=== PATIENT | female | born 1930 | race Native Hawaiian/Other Pacific Islander ===

== ENCOUNTER → 2016-10-21 | Outpatient (CLI) | payer MEDICARE ==
--- NOTE | 2016-10-22 08:22 | XR ---
EXAMINATION TYPE: XR cervical spine comp DATE OF EXAM: 10/21/2016 3:45 PM COMPARISON: NONE HISTORY: Pain TECHNIQUE: Four views are submitted. FINDINGS: The odontoid is intact. There are no compression deformities. The prevertebral soft tissue structur es are within normal limits. Hypertrophic changes are seen at levels C3-T1. There is retrolisthesis of C3 on C4, C4 and C5 and C5 and C6. Multilevel moderate to severe degenerative disc disease and fac et arthropathy. Foraminal encroachment suspected level C3-T1. The oblique view surgical clips are seen overlying the upper chest. IMPRESSION: 1. Multilevel moderate to severe degenerative disc disease with retrolisthesis and facet arthropathy. Correlate with MRI for canal stenosis as clinically warranted.
== END | disposition home or self-care (01) ==
LOC: RADXRYALE 15:21
PROVIDERS: ATTEND Family Medicine
DX: M43.12 Spondylolisthesis, cervical region (principal); M50.10 Cervical disc disorder with radiculopathy, unspecified cervical region; M46.82 Other specified inflammatory spondylopathies, cervical region
CPT/HCPCS: 72050

== ENCOUNTER → 2017-07-07 | Outpatient (CLI) | payer MEDICARE ==
--- NOTE | 2017-07-08 12:08 | XR ---
Left knee HISTORY: Pain, swelling, strain 3 views of the left knee No comparisons Suprapatellar increased density is compatible joint effusion. Alignment and joint spaces are maintain ed. No fracture or dislocation. Vascular calcifications are suspected. IMPRESSION: Joint effusion. Consider knee MRI as indicated.
== END | disposition home or self-care (01) ==
LOC: RADXRYALE 15:19
PROVIDERS: ATTEND Physician Assistant Medical
DX: M25.462 Effusion, left knee (principal)

== ENCOUNTER → 2018-05-06 | Outpatient (CLI) | payer MEDICARE ==
--- NOTE | 2018-05-06 09:42 | MR ---
EXAMINATION TYPE: MR knee LT wo con DATE OF EXAM: 05/06/2018 COMPARISON: Plain film 07/07/2017 HISTORY: Left knee pain TECHNIQUE: Multiplanar, multisequence imaging of the left knee is performed without IV contrast. FINDINGS: MEDIAL MENISCUS: Some linear increased signal extends to the articular surface the posterior horn of the medial meniscus sagittal image 20 which may represent tear. There is intrasubstance signal noted additionally. LATERAL MENISCUS: The posterior horn of the lateral meniscus is markedly attenuated towards the root, abnormal signal present is compatible with chronic degeneration and tear of the lateral meniscus CRUCIATE LIGAMENTS: The anterior and posterior cruciate ligaments are intact and unremarkable. COLLATERAL LIGAMENTS: The medial collateral ligament and lateral collateral ligament complex are inta ct and unremarkable. EXTENSOR MECHANISM: Visualized quadriceps and patellar tendons are intact. EFFUSION: Suprapatellar joint effusion is present. POPLITEAL CYST: There is a small semimembranosus gastrocnemius cyst present. 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 Fluid signal at the origins of the gastrocnemius medial and lateral bellies could represent partial tears or possibly ganglion cysts. 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 Findings suggest tear of the posterior horn the medial meniscus. Additional findings above.
== END | disposition home or self-care (01) ==
LOC: RADMRIMAIN 08:44
PROVIDERS: ATTEND Family Medicine
DX: M17.12 Unilateral primary osteoarthritis, left knee (principal)

== ENCOUNTER 2021-04-09 18:02 | Observation (INO) | payer MEDICARE ==
[2021-04-09 19:10] LABS: Basophils % (A) 0 %; Eosinophils # (A) 0.3 k/uL (0-0.7); Eosinophils % (A) 3 %; HCT 39.7 % (34.0-46.0); HGB 12.8 gm/dL (11.4-16.0); Lymphocytes # (A) 1.8 k/uL (1.0-4.8); Lymphocytes % (A) 19 %; MCH 28.7 pg (25.0-35.0); MCHC 32.1 g/dL (31.0-37.0); MCV 89.3 fL (80.0-100.0); Mean Platelet Volume 7.4; Monocytes # (A) 0.5 k/uL (0-1.0); Monocytes % (A) 6 %; Neutrophils # (A) 6.4 k/uL (1.3-7.7); Neutrophils % (A) 69 %; Platelet Count 199 k/uL (150-450); RBC 4.45 m/uL (3.80-5.40); RDW 13.7 % (11.5-15.5); WBC 9.2 k/uL (3.8-10.6)
[2021-04-09 19:20] LABS: ALT 13 U/L (4-34); AST 26 U/L (14-36); African American GFR (CKD) >90 (>60 ml/min/1.73 sqM); Albumin 4.1 g/dL (3.5-5.0); Alkaline Phosphatase 81 U/L (38-126); Anion Gap 9 mmol/L; Blood Urea Nitrogen 18 mg/dL (7-17); Calcium 9.4 mg/dL (8.4-10.2); Carbon Dioxide 24 mmol/L (22-30); Chloride 102 mmol/L (98-107); Glucose 115 mg/dL (74-99); Magnesium 1.7 mg/dL (1.6-2.3); Non-African American GFR(CKD) 79 (>60 ml/min/1.73 sqM); Potassium 4.7 mmol/L (3.5-5.1); Sodium 135 mmol/L (137-145); Total Bilirubin 0.6 mg/dL (0.2-1.3); Total Protein 7.1 g/dL (6.3-8.2)
--- NOTE | 2021-04-09 19:25 | XR ---
EXAMINATION TYPE: XR chest 2V DATE OF EXAM: 04/09/2021 COMPARISON: 09/22/2012 HISTORY: Chest pain. Weakness. TECHNIQUE: 2 views FINDINGS: Heart and mediastinum are normal. Lungs are clear. Diaphragm is normal. Bony thorax is inta ct. There are chest leads. There are clips at the right axilla. IMPRESSION: No active cardiopulmonary disease. Normal heart. No change.
[2021-04-09 19:43] LABS: INR 0.9 (<1.2); Partial Thromboplastin Time 24.9 sec (22.0-30.0)
--- NOTE | 2021-04-09 20:04 | ED ---
General Adult HPI - General Chief complaint: Chest Pain Stated complaint: abd ekg Time Seen by Provider: 04/09/21 18:22 Source: patient, RN notes reviewed, old records reviewed Mode of arrival: wheelchair Limitations: no limitations - History of Present Illness Initial comments: 89-year-old female presenting for evaluation of chest pain and abnormal EKG. Patient was sent in by primary care physician. She's had upper left-sided chest pain over the past several days. This is intermittent. She denies associated features of diaphoresis or vomiting. She has had a mild cough and mild dyspnea. She has no previous history of CAD. No history DVT or PE. - Related Data Home Medications Medication Instructions Recorded Confirmed Losartan Potassium 50 mg PO HS 04/09/21 04/09/21 Timolol 0.5% Ophth Soln [Timoptic 1 drop BOTH EYES DAILY 04/09/21 04/09/21 0.5% Ophth Soln] amLODIPine [Norvasc] 2.5 mg PO DAILY 04/09/21 04/09/21 metFORMIN HCL 250 mg PO DAILY 04/09/21 04/09/21 Allergies Allergy/AdvReac Type Severity Reaction Status Date / Time Penicillins Allergy Anaphylaxis Verified 04/09/21 21:01 Review of Systems ROS Statement: Those systems with pertinent positive or pertinent negative responses have been documented in the HPI. ROS Other: All systems not noted in ROS Statement are negative. Past Medical History Past Medical History: Diabetes Mellitus, Hyperlipidemia, Hypertension History of Any Multi-Drug Resistant Organisms: None Reported Past Surgical History: No Surgical Hx Reported Past Psychological History: No Psychological Hx Reported Smoking Status: Never smoker Past Alcohol Use History: None Reported Past Drug Use History: None Reported General Exam Limitations: no limitations General appearance: alert, in no apparent distress Head exam: Present: atraumatic, normocephalic Eye exam: Present: normal appearance, PERRL ENT exam: Present: normal exam Neck exam: Present: normal inspection. Absent: tenderness, meningismus Respiratory exam: Present: normal lung sounds bilaterally. Absent: respiratory distress, wheezes, rales, chest wall tenderness Cardiovascular Exam: Present: bradycardia, irregular rhythm GI/Abdominal exam: Present: soft. Absent: distended, tenderness, guarding, rebound Extremities exam: Present: normal inspection, normal capillary refill. Absent: pedal edema Neurological exam: Present: alert, oriented X3, CN II-XII intact. Absent: motor sensory deficit Psychiatric exam: Present: normal affect, normal mood Skin exam: Present: warm, dry, intact. Absent: cyanosis, diaphoretic Course Vital Signs 04/09/21 18:05 Temperature 98.3 F Pulse Rate 67 Respiratory 20 Rate Blood Pressure 168/77 O2 Sat by Pulse 97 Oximetry EKG Findings - EKG Comments: EKG Findings:: EKG: bradycardia with second-degree AV block type I, rate 57 UT interval is prolonged, QRS duration 82, QTC 408. No complex. Medical Decision Making - Medical Decision Making 89-year-old female presenting from the outpatient setting for evaluation of chest pain and abnormal EKG. Patient is in a bradycardic rhythm with second- degree heart block type I. Blood pressure is stable. Workup is initiated, CBC, CMP are unremarkable, negative initial troponin. She has an elevated d-dimer and CT angiography is ordered these results are pending. Patient will be monitored on telemetry. Cardiology will be placed on consult for evaluation both of her chest pain in her bradycardia. Case discussed with Dr. Stevenson who will admit. - Lab Data Result diagrams: 04/09/21 18:56 04/09/21 18:56 Lab Results 04/09/21 04/09/21 04/09/21 Range/Units 18:56 18:56 18:56 WBC 9.2 (3.8-10.6) k/uL RBC 4.45 (3.80-5.40) m/uL Hgb 12.8 (11.4-16.0) gm/dL Hct 39.7 (34.0-46.0) % MCV 89.3 (80.0-100.0) fL MCH 28.7 (25.0-35.0) pg MCHC 32.1 (31.0-37.0) g/dL RDW 13.7 (11.5-15.5) % Plt Count 199 (150-450) k/uL MPV 7.4 Neutrophils % 69 % Lymphocytes % 19 % Monocytes % 6 % Eosinophils % 3 % Basophils % 0 % Neutrophils # 6.4 (1.3-7.7) k/uL Lymphocytes # 1.8 (1.0-4.8) k/uL Monocytes # 0.5 (0-1.0) k/uL Eosinophils # 0.3 (0-0.7) k/uL Basophils # 0.0 (0-0.2) k/uL PT 10.0 (9.0-12.0) sec INR 0.9 (<1.2) APTT 24.9 (22.0-30.0) sec D-Dimer 1.61 H (<0.60) mg/L FEU Sodium 135 L (137-145) mmol/L Potassium 4.7 (3.5-5.1) mmol/L Chloride 102 (98-107) mmol/L Carbon Dioxide 24 (22-30) mmol/L Anion Gap 9 mmol/L BUN 18 H (7-17) mg/dL Creatinine 0.66 (0.52-1.04) mg/dL Est GFR (CKD-EPI)AfAm >90 (>60 ml/min/1.73 sqM) Est GFR (CKD-EPI)NonAf 79 (>60 ml/min/1.73 sqM) Glucose 115 H (74-99) mg/dL Calcium 9.4 (8.4-10.2) mg/dL Magnesium 1.7 (1.6-2.3) mg/dL Total Bilirubin 0.6 (0.2-1.3) mg/dL AST 26 (14-36) U/L ALT 13 (4-34) U/L Alkaline Phosphatase 81 (38-126) U/L Troponin I (0.000-0.034) ng/mL Total Protein 7.1 (6.3-8.2) g/dL Albumin 4.1 (3.5-5.0) g/dL 04/09/21 Range/Units 18:56 WBC (3.8-10.6) k/uL RBC (3.80-5.40) m/uL Hgb (11.4-16.0) gm/dL Hct (34.0-46.0) % MCV (80.0-100.0) fL MCH (25.0-35.0) pg MCHC (31.0-37.0) g/dL RDW (11.5-15.5) % Plt Count (150-450) k/uL MPV Neutrophils % % Lymphocytes % % Monocytes % % Eosinophils % % Basophils % % Neutrophils # (1.3-7.7) k/uL Lymphocytes # (1.0-4.8) k/uL Monocytes # (0-1.0) k/uL Eosinophils # (0-0.7) k/uL Basophils # (0-0.2) k/uL PT (9.0-12.0) sec INR (<1.2) APTT (22.0-30.0) sec D-Dimer (<0.60) mg/L FEU Sodium (137-145) mmol/L Potassium (3.5-5.1) mmol/L Chloride (98-107) mmol/L Carbon Dioxide (22-30) mmol/L Anion Gap mmol/L BUN (7-17) mg/dL Creatinine (0.52-1.04) mg/dL Est GFR (CKD-EPI)AfAm (>60 ml/min/1.73 sqM) Est GFR (CKD-EPI)NonAf (>60 ml/min/1.73 sqM) Glucose (74-99) mg/dL Calcium (8.4-10.2) mg/dL Magnesium (1.6-2.3) mg/dL Total Bilirubin (0.2-1.3) mg/dL AST (14-36) U/L ALT (4-34) U/L Alkaline Phosphatase (38-126) U/L Troponin I <0.012 (0.000-0.034) ng/mL Total Protein (6.3-8.2) g/dL Albumin (3.5-5.0) g/dL Disposition Clinical Impression: Chest pain, Second degree AV block, Mobitz type I Disposition: ADMITTED IP TO THIS [facility] Condition: Stable Is patient prescribed a controlled substance at d/c from ED?: No Referrals: Tevin Dixon DO [Primary Care Provider] - 1-2 days Decision to Admit Reason: Admit from EC Decision Date: 04/09/21 Decision Time: 20:57
[2021-04-09] MEDS ORDERED: ASPIRIN 325 MG TAB PO STA (20:50)
[2021-04-09] MEDS ORDERED: ACETAMINOPHEN TAB 325 MG TAB PO PRN (20:50)
[2021-04-09] MEDS ORDERED: NALOXONE 0.4 MG/ML 1 ML VIAL IV PRN (20:50)
--- NOTE | 2021-04-09 20:59 | CT ---
EXAMINATION TYPE: CT angio chest DATE OF EXAM: 04/09/2021 COMPARISON: None HISTORY: Left sided chest and arm pain. Elevated d-dimer. CT DLP: 224 mGycm Automated exposure control for dose reduction was used. CONTRAST: Performed with IV Contrast, patient injected with 100 mL of Isovue 370. There are 3-D post processed images. There is no mediastinal adenopathy. There are no hilar masses. Heart size is fairly normal. There is mild subsegmental atelectasis at the lung bases. There is no pleural effusion. There is no pericardia l effusion. There is normal contrast opacification of the pulmonary arteries. There are no filling defects. There is mild atheromatous change in the thoracic aorta. There is no sign of aneurysm or dissection. There is some degenerative spurring in the thoracic spine. There is no compression fracture. Sternum is intact. There is a large calcified gallstone. IMPRESSION: No evidence of pulmonary embolism. Mild fibrotic changes and subsegmental atelectasis at the lung bas es.
[2021-04-09] MEDS: FAMOTIDINE 20 MG/2 ML VIAL IV SCH (23:10)
[2021-04-09] MEDS: HEPARIN SODIUM,PORCINE/PF 5,000 UNIT/0.5 ML SYRINGE SQ SCH (23:10)
[2021-04-10 06:30] LABS: African American GFR (CKD) >90 (>60 ml/min/1.73 sqM); Anion Gap 8 mmol/L; Blood Urea Nitrogen 15 mg/dL (7-17); Calcium 9.3 mg/dL (8.4-10.2); Carbon Dioxide 25 mmol/L (22-30); Chloride 102 mmol/L (98-107); Glucose 116 mg/dL (74-99); Magnesium 1.7 mg/dL (1.6-2.3); Non-African American GFR(CKD) 78 (>60 ml/min/1.73 sqM); Potassium 3.8 mmol/L (3.5-5.1); Sodium 135 mmol/L (137-145)
--- NOTE | 2021-04-10 10:35 | P.HPIM ---
History of Present Illness 89-year-old pleasant female came in with complaints of from musculoskeletal left-sided sharp chest pain radiating to the back moderate severity. Patient is incidentally found to have second-degree heart block questionable whether it's type II second-degree AV block. Patient was evaluated by cardiology and patient is undergoing pacemaker placement today patient chest pain is reproducible. Patient is mildly elevated d-dimer of 1.4 because of which patient had CT angios the chest which did not show any pulmonary embolism. Patient lives by herself able to take care of herself REVIEW OF SYSTEMS: CONSTITUTIONAL: No fever, no malaise, no fatigue. HEENT: No recent visual problems or hearing problems. Denied any sore throat. CARDIOVASCULAR: No orthopnea, PND, no palpitations, no syncope. PULMONARY: No shortness of breath, no cough, no hemoptysis. GASTROINTESTINAL: No diarrhea, no nausea, no vomiting, no abdominal pain. NEUROLOGICAL: No headaches, no weakness, no numbness. HEMATOLOGICAL: Denies any bleeding or petechiae. GENITOURINARY: Denies any burning micturition, frequency, or urgency. MUSCULOSKELETAL/RHEUMATOLOGICAL: Denies any joint pain, swelling, or any muscle pain. ENDOCRINE: Denies any polyuria or polydipsia. The rest of the 14-point review of systems is negative. PHYSICAL EXAMINATION: GENERAL: The patient is alert and oriented x3, not in any acute distress. Thin built HEENT: Pupils are round and equally reacting to light. EOMI. No scleral icterus. No conjunctival pallor. Normocephalic, atraumatic. No pharyngeal erythema. No thyromegaly. CARDIOVASCULAR: S1 and S2 present. No murmurs, rubs, or gallops. Reproducible chest pain PULMONARY: Chest is clear to auscultation, no wheezing or crackles. ABDOMEN: Soft, nontender, nondistended, normoactive bowel sounds. No palpable organomegaly. MUSCULOSKELETAL: No joint swelling or deformity. EXTREMITIES: No cyanosis, clubbing, or pedal edema. NEUROLOGICAL: Gross neurological examination did not reveal any focal deficits. SKIN: No rashes. Assessment and plan -Chest pain Musko skeletal rule out a concurrent syndromes -Second-degree AV block: Possibility of type II, patient will undergo pacemaker placement today -Hypertension patient will be resumed on home regimen hyperlipidemia DVT prophylaxis: Lovenox Past Medical History Past Medical History: Diabetes Mellitus, Hyperlipidemia, Hypertension History of Any Multi-Drug Resistant Organisms: None Reported Past Surgical History: No Surgical Hx Reported Past Anesthesia/Blood Transfusion Reactions: No Reported Reaction Past Psychological History: No Psychological Hx Reported Smoking Status: Never smoker Past Alcohol Use History: None Reported Past Drug Use History: None Reported Medications and Allergies Home Medications Medication Instructions Recorded Confirmed Type Losartan Potassium 50 mg PO HS 04/09/21 04/09/21 History Timolol 0.5% Ophth Soln [Timoptic 1 drop BOTH EYES DAILY 04/09/21 04/09/21 History 0.5% Ophth Soln] amLODIPine [Norvasc] 2.5 mg PO DAILY 04/09/21 04/09/21 History metFORMIN HCL 250 mg PO DAILY 04/09/21 04/09/21 History Allergies Allergy/AdvReac Type Severity Reaction Status Date / Time Penicillins Allergy Anaphylaxis Verified 04/09/21 21:01 Physical Exam Vitals: Vital Signs Temp Pulse Pulse Resp BP BP Pulse Ox 04/10/21 07:13 97.7 F 68 16 154/69 95 04/10/21 02:00 98.0 F 63 15 132/56 96 04/10/21 01:23 53 L 04/09/21 18:05 98.3 F 67 20 168/77 97 Intake and Output 04/09/21 04/10/21 04/10/21 22:59 06:59 14:59 Intake Total 380 Balance 380 Intake: Oral 380 Other: # Voids 1 Weight 61.235 kg Results CBC & Chem 7: 04/09/21 18:56 04/10/21 05:30 Labs: Abnormal Lab Results - Last 24 Hours (Table) 04/09/21 04/09/21 04/10/21 Range/Units 18:56 18:56 05:30 D-Dimer 1.61 H (<0.60) mg/L FEU Sodium 135 L 135 L (137-145) mmol/L BUN 18 H (7-17) mg/dL Glucose 115 H 116 H (74-99) mg/dL Thrombosis Risk Factor Assmnt - Choose All That Apply Other Risk Factors: Yes Each Risk Factor Represents 3 Points: Age 75 years or older Other congenital or acquired thrombophilia - If yes, enter type in comment: No Thrombosis Risk Factor Assessment Total Risk Factor Score: 3 Thrombosis Risk Factor Assessment Level: Moderate Risk
[2021-04-10] MEDS: HEPARIN SODIUM,PORCINE/PF 5,000 UNIT/0.5 ML SYRINGE SQ SCH ×2 (11:28→21:22)
[2021-04-10] MEDS: FAMOTIDINE 20 MG/2 ML VIAL IV SCH ×2 (11:28→21:22)
[2021-04-10] MEDS ORDERED: SODIUM CHLORIDE 0.9% 1,000 ML IV SCH (12:15)
[2021-04-10 12:39] LABS: Glucose,Whole Blood 99 mg/dL (75-99)
[2021-04-10 12:54] VITALS: BMI 23.9
[2021-04-10] MEDS: SODIUM CHLORIDE 0.9% 1,000 ML IV SCH (13:04)
--- NOTE | 2021-04-10 13:30 | CONS ---
CONSULTATION CHIEF COMPLAINT: 1. Chest pain. 2. High-grade AV block. Aria is an 89-year-old lady with history of hypertension and gsn-rcbzupz-nfsnkrykr diabetes who lives independently, takes care of herself, and by her narration is fairly active and has three sons. One of them lives close by and interacts with her on a regular basis. She comes into hospital with symptoms of not feeling well, fatigue, and not having his usual energy. She also complains of chest discomfort. Her chest pain is vague, sharp, atypical, precordial and radiates to her back. Her EKG on admission showed high-grade AV block with what seems to be AV dissociation. I have reviewed her rhythm strips since admission. I have noted second-degree AV block, both type 1 and type 2, and there were pauses. Patient did not have any syncope. Patient did not have any leg edema, PND or orthopnea. Repeat EKG this morning shows type 2 second-degree heart block. Given her symptoms and the high-grade AV block noted on the EKGs and rhythm strips, I am advising the patient to undergo permanent pacemaker. I am going to check a TSH and an echocardiogram prior. She had a CT scan of the chest that was negative for pulmonary embolism. Her troponins are negative. Coronavirus is negative. Potassium was 4.7 on her presentation with normal kidney functions. White cell count is normal, as is the hemoglobin. PAST MEDICAL HISTORY: Significant for hypertension and xkr-ddlserx-zrldtraei diabetes. MEDICATIONS: Medications include metformin, amlodipine, timolol and losartan. ALLERGIES: PENICILLIN. FAMILY HISTORY: Negative for premature coronary artery disease. SOCIAL HISTORY: Negative for current smoking, EtOH abuse or drug abuse. REVIEW OF SYSTEMS: HEENT is unremarkable. CARDIAC: As described above. RESPIRATORY: As described above. GI: Negative. GENITOURINARY: Negative. ALLERGY/IMMUNOLOGY: Negative. SKIN: Negative. MUSCULOSKELETAL: Significant for arthritis. PSYCHOSOCIAL: Negative. ENDOCRINE: Negative. DERMATOLOGY: Negative. CONSTITUTIONAL: Negative. ONCOLOGICAL: Negative. PHOTOGRAPHIC LABORATORY SUPERVISOR: Negative. Rest of the system review is not relevant. PHYSICAL EXAMINATION: Afebrile. Heart rate is 68 beats per minute. Blood pressure is 132/76. Respiratory rate is 16. There is no jugular venous distention. Carotid upstroke is normal. There is no bruit. Chest exam reveals good air entry bilaterally. Heart exam reveals first and second heart sounds, systolic murmur at the apex and at the left lower sternal border. Abdomen is soft. Examination of extremities did not reveal any edema. Peripheral pulses are felt. LABS: Potassium of 3.8. Creatinine is 0.6. Troponins are negative. ASSESSMENT: 1. High-grade AV block. 2. Chest pain. LA ruled out. 3. Elevated D-dimer. Pulmonary embolism ruled out. PLAN: I will check a TSH and an echocardiogram. Patient will undergo a pacemaker tomorrow. MMODL / IJN: [id number] /
--- NOTE | 2021-04-10 16:38 | ECHOF ---
Referral Reason:abnormal ekg MEASUREMENTS -------- HEIGHT: 160.0 cm WEIGHT: 61.2 kg BP: 154/69 RVIDd: 3.2 cm (< 3.3) IVSd: 1.3 cm (0.6 - 1.1) LVIDd: 3.9 cm (3.9 - 5.3) LVPWd: 1.5 cm (0.6 - 1.1) IVSs: 1.7 cm LVIDs: 2.2 cm LVPWs: 2.1 cm LAESV Index (A-L): 44.13 ml/m Ao Diam: 2.4 cm (2.0 - 3.7) AV Cusp: 1.7 cm (1.5 - 2.6) LA Diam: 4.0 cm (2.7 - 3.8) MV EXCURSION: 12.703 mm (> 18.000) MV EF SLOPE: 22 mm/s (70 - 150) EPSS: 0.5 cm MV E Lawrence: 1.04 m/s MV DecT: 148 ms MV A Lawrence: 1.44 m/s MV E/A Ratio: 0.73 RAP: 5.00 mmHg RVSP: 36.32 mmHg FINDINGS -------- Sinus rhythm. This was a technically adequate study. The left ventricular size is normal. There is mild concentric left ventricular hypertrophy. Overa ll left ventricular systolic function is normal with, an EF between 55 - 60 %. The right ventricle is normal in size. LA is severely dilated >40 ml/m2 The right atrial size is normal. Interatrial and interventricular septum intact. The aortic valve is trileaflet and appears structurally normal. There is mild aortic valve sclerosi s. There is no evidence of aortic regurgitation. There is no evidence of aortic stenosis. Mild mitral regurgitation is present. Mild tricuspid regurgitation present. There is borderline pulmonary artery hypertension. The righ t ventricular systolic pressure, as measured by Doppler, is 36.32mmHg. There is no pulmonic regurgitation present. The aortic root size is normal. IVC Not well visulized. There is no pericardial effusion. CONCLUSIONS -------- 1. The left ventricular size is normal. 2. There is mild concentric left ventricular hypertrophy. 3. Overall left ventricular systolic function is normal with, an EF between 55 - 60 %. 4. LA is severely dilated >40 ml/m2 5. There is mild aortic valve sclerosis. 6. Mild mitral regurgitation is present. 7. Mild tricuspid regurgitation present. 8. There is borderline pulmonary artery hypertension. 9. The right ventricular systolic pressure, as measured by Doppler, is 36.32mmHg. MANAGEMENT ADVISOR: Ashleigh Ratliff RDCS
[2021-04-10] MEDS: LOSARTAN 50 MG TAB PO SCH (21:22)
[2021-04-11] MEDS ORDERED: CLINDAMYCIN 900 MG in DEXTROSE 5% IN WATER 50 ML IVPB PRN ×2 (07:00)
[2021-04-11] MEDS ORDERED: CLINDAMYCIN 600 MG in SODIUM CHLORIDE 0.9% 250 ML IRRIGATION PRN (07:00)
[2021-04-11] MEDS ORDERED: LIDOCAINE 1% INJ 10MG/ML (20 ML MDV) ONE ×2 (07:24→07:25)
[2021-04-11] MEDS ORDERED: IOPAMIDOL-370 50ML BTL INJ ONE (07:52)
[2021-04-11] MEDS ORDERED: SODIUM CHLORIDE 0.9% 1,000 ML IV ONE (07:52)
[2021-04-11] MEDS ORDERED: fentaNYL (PF) 50 MCG/ML 2 ML AMP ONE (07:59)
[2021-04-11] MEDS ORDERED: MIDAZOLAM 2 MG/2 ML VIAL IV ONE (08:04)
[2021-04-11] MEDS ORDERED: fentaNYL (PF) 50 MCG/ML 2 ML AMP IV ONE (08:04)
[2021-04-11] MEDS ORDERED: LIDOCAINE 1% INJ 10MG/ML (20 ML MDV) SQ ONE ×2 (08:18→08:22)
--- NOTE | 2021-04-11 09:10 | P.PCN ---
Date of Procedure: 04/11/21 Preoperative Diagnosis: High degree AV block Postoperative Diagnosis: Same, status post permanent pacemaker implantation Procedure(s) Performed: Dual-chamber permanent pacemaker implantation, axillary venography Description of Procedure: HISTORY: This is a 89-year-old female was admitted to the hospital with the fatigue and weakness and was noted to have high degree AV block with periods of Wenckebach phenomenon A-V dissociation. Dr. Zambrano requested permanent pacemaker implantation. CONSENT: Dr. Zambrano has discussed the risks, benefits and alternative therapies for the above-mentioned procedure and for both sedation/analgesia as well as necessary blood product administration, if indicated, as they pertain to this patient. The patient has indicated understanding and acceptance of the risks and procedures discussed. PROCEDURE: Patient was brought to the lab in a fasting state. Patient was prepped and draped in the usual fashion. Patient was given IV sedation with fentanyl and Versed. The skin below the left clavicle was infiltrated with lidocaine. An incision was made parallel to deltopectoral groove was deepened until the pectoral fascia was exposed. A pocket was created by blunt dissection and cautery. Axillary venography was performed to delineate the course of the axillary vein. 2 sticks were performed into extrathoracic portion of the axillary vein and 2 sheaths were advanced over the guidewires and left in subclavian vein. Conscious Sedation: Versed 0.5 mg mg Fentanyl 25 g Duration 40 minutes LEADS: ATRIAL: . This is manufactured by [employer]. Model num alvaro is [id number] and the serial number is [id number] VENTRICULAR: This is manufactured by [employer]. Model number is [id number] and the serial number is [id number] THE DEVICE: This is manufactured by [employer]. Model number is [id number] And the serial number is [id number] The ventricular lead is maneuvered l with help of a straight and curved stylets into the left ventricle apical region. Satisfactory position was obtained and threshold measurements were made. The atrial lead was then maneuvered into the right atrial appendage. And thresholds were obtained. THRESHOLDS: ATRIUM: The minimum patient threshold is 0.5 at pulse width of 0.4. The impedance is 489 P-wave: 2.875 VENTRICLE: The minimum patient threshold is 0.875 at pulse width of 0.4. Impedance is 817 R-wave: 9 The leads and pulse generator remained in the pocket after it was washed with antibiotics. Pocket was closed in the usual fashion. The fascia was closed with 2-0 Prolene ,the subcutaneous tissue was closed with 3-0 Prolene and the skin was closed with 4-0 Prolene. PROGRAMMING: MODE: DDDR RATE: 60 to 130 OUTPUT: Atrium: 3.5 Ventricle: 3.5 FINAL IMPRESSION: Successful implantation of dual-chamber pacemaker. Axillary venography COMPLICATIONS: none PLAN: Continue prophylactic antibiotics. Monitored on the telemetry unit. If stable patient be discharged home in the morning
[2021-04-11] MEDS: amLODIPine 2.5 MG TAB PO SCH (09:59)
[2021-04-11] MEDS: FAMOTIDINE 20 MG/2 ML VIAL IV SCH (09:59)
[2021-04-11] MEDS: TIMOLOL 0.5% OPHTH DROPS 5 ML BTL BOTH EYES SCH (09:59)
[2021-04-11] MEDS: HEPARIN SODIUM,PORCINE/PF 5,000 UNIT/0.5 ML SYRINGE SQ SCH ×2 (10:00→19:45)
--- NOTE | 2021-04-11 11:53 | P.PN ---
Subjective Progress Note Date: 04/11/21 89-year-old pleasant female came in with complaints of from musculoskeletal left-sided sharp chest pain radiating to the back moderate severity. Patient is incidentally found to have second-degree heart block questionable whether it's type II second-degree AV block. Patient was evaluated by cardiology and patient is undergoing pacemaker placement today patient chest pain is reproducible. Patient is mildly elevated d-dimer of 1.4 because of which patient had CT angios the chest which did not show any pulmonary embolism. Patient lives by herself able to take care of herself Patient is evaluated today status post insertion of a dual-chamber pacemaker Dr. Lopez this morning. She currently denies any pain. We will put a PT OT consultation. Echocardiogram showed an EF of 55-60% with mild concentric left ventricular hypertrophy. Troponins are negative, TSH normal 1.52, will repeat labs in the morning. ROS Constitutional: Denied any fatigue denied any fever. Cardio vascular: denied any chest pain, palpitations Gastrointestinal denied any nausea vomiting Pulmonary: Denied any shortness of breath cough Neurologic denied any new focal deficits All inpatient medications were reviewed and appropriate changes in these medications as dictated in the interval history and assessment and plan. PHYSICAL EXAMINATION: GENERAL: The patient is alert and oriented x3, not in any acute distress. Thin built HEENT: Pupils are round and equally reacting to light. EOMI. No scleral icterus. No conjunctival pallor. Normocephalic, atraumatic. No pharyngeal erythema. No thyromegaly. CARDIOVASCULAR: S1 and S2 present. No murmurs, rubs, or gallops. Reproducible chest pain PULMONARY: Chest is clear to auscultation, no wheezing or crackles. ABDOMEN: Soft, nontender, nondistended, normoactive bowel sounds. No palpable organomegaly. MUSCULOSKELETAL: No joint swelling or deformity. EXTREMITIES: No cyanosis, clubbing, or pedal edema. NEUROLOGICAL: Gross neurological examination did not reveal any focal deficits. SKIN: No rashes. 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 Patient will most likely be discharged home tomorrow. Objective - Vital Signs Vital signs: Vital Signs Temp 97.8 F 04/11/21 09:27 Pulse 58 L 04/11/21 10:27 Resp 18 04/11/21 09:27 BP 176/73 04/11/21 10:27 Pulse Ox 96 04/11/21 10:27 Intake & Output 04/10/21 04/11/21 04/11/21 18:59 06:59 18:59 Intake Total 380 600 206 Balance 380 600 206 Weight 61.235 kg Intake: IV 206 Intake, IV Titration 600 Amount Clindamycin 900 mg In 400 Dextrose 5% in Water 50 ml @ 50 mls/hr IVPB ONCE PRN Rx#:[id number] Sodium Chloride 0.9% 1, 200 000 ml @ 50 mls/hr IV . Q20H [facility] Rx#:[id number] Oral 380 Other: Voiding Method Toilet # Voids 1 2 # Bowel Movements 1 - Labs CBC & Chem 7: 04/09/21 18:56 04/10/21 05:30 Assessment and Plan Time with Patient: Greater than 30
[2021-04-11 12:30] LABS: African American GFR (CKD) >90 (>60 ml/min/1.73 sqM); Anion Gap 7 mmol/L; Blood Urea Nitrogen 14 mg/dL (7-17); Calcium 8.8 mg/dL (8.4-10.2); Carbon Dioxide 24 mmol/L (22-30); Chloride 104 mmol/L (98-107); Glucose 140 mg/dL (74-99); Magnesium 1.7 mg/dL (1.6-2.3); Non-African American GFR(CKD) 79 (>60 ml/min/1.73 sqM); Sodium 135 mmol/L (137-145)
[2021-04-11] MEDS ORDERED: CLINDAMYCIN 900 MG in DEXTROSE 5% IN WATER 50 ML IVPB SCH ×2 (14:00)
[2021-04-11] MEDS: SODIUM CHLORIDE 0.9% 1,000 ML IV SCH (18:59)
[2021-04-11] MEDS: LOSARTAN 50 MG TAB PO SCH (19:46)
[2021-04-11 20:53] LABS: Glucose,Whole Blood 126 mg/dL (75-99)
[2021-04-12] MEDS: SODIUM CHLORIDE 0.9% 1,000 ML IV SCH (05:05)
[2021-04-12 06:19] VITALS: TEMP 98.2
[2021-04-12] MEDS ORDERED: Magnesium Replacement Protocol 1 EACH MISC MISCELLANE PRN (07:24)
[2021-04-12 07:26] LABS: African American GFR (CKD) 89 (>60 ml/min/1.73 sqM); Anion Gap 7 mmol/L; Blood Urea Nitrogen 12 mg/dL (7-17); Calcium 9.1 mg/dL (8.4-10.2); Carbon Dioxide 25 mmol/L (22-30); Chloride 104 mmol/L (98-107); Glucose 118 mg/dL (74-99); Non-African American GFR(CKD) 78 (>60 ml/min/1.73 sqM); Potassium 3.9 mmol/L (3.5-5.1); Sodium 136 mmol/L (137-145)
--- NOTE | 2021-04-12 07:50 | XR ---
EXAMINATION TYPE: XR chest 2V DATE OF EXAM: 04/12/2021 COMPARISON: Chest x-ray 04/09/2021 HISTORY: Lead placement check TECHNIQUE: Frontal and lateral views of the chest are obtained. FINDINGS: There is a generator in the left pectoral region, lead in the right atrium and ventricle, right ventricular lead is somewhat transversely oriented. Patient is rotated. There is no evident pne umothorax or pleural effusion. Exam is somewhat expiratory. Cardiac mediastinal silhouette is stable accounting for differences in technique. There is coronary artery calcification. IMPRESSION: No evident complication status post lead placement, leads as described
[2021-04-12] MEDS: HEPARIN SODIUM,PORCINE/PF 5,000 UNIT/0.5 ML SYRINGE SQ SCH (08:19)
[2021-04-12] MEDS: MAGNESIUM SULFATE-D5W PMX 1 GM in DEXTROSE/WATER 1 100ML.BAG IVPB SCH ×2 (08:19→12:00)
[2021-04-12] MEDS: amLODIPine 2.5 MG TAB PO SCH (08:19)
[2021-04-12] MEDS: TIMOLOL 0.5% OPHTH DROPS 5 ML BTL BOTH EYES SCH (08:21)
[2021-04-12 08:27] VITALS: RESP 18
[2021-04-12] MEDS ORDERED: FAMOTIDINE 20 MG TAB PO SCH (09:00)
[2021-04-12 12:13] LABS: Basophils # (A) 0.03 X 10*3/uL (0.00-0.10); Basophils % (A) 0.5 %; Eosinophils # (A) 0.17 X 10*3/uL (0.04-0.35); Eosinophils % (A) 2.7 %; HCT 33.9 % (37.2-46.3); Lymphocytes # (A) 1.81 X 10*3/uL (0.90-5.00); Lymphocytes % (A) 29.2 %; MCH 28.6 pg (27.0-32.0); MCHC 32.4 g/dL (32.0-37.0); MCV 88.1 fL (80.0-97.0); Mean Platelet Volume 10.5 fL (9.5-12.2); Monocytes # (A) 0.62 X 10*3/uL (0.20-1.00); Neutrophils # (A) 3.56 X 10*3/uL (1.80-7.70); Neutrophils % (A) 57.4 %; Platelet Count 210 X 10*3/uL (140-440); RBC 3.85 X 10*6/uL (4.10-5.20); RDW 13.9 % (11.5-14.5)
--- NOTE | 2021-04-12 12:46 | P.PN ---
Subjective Progress Note Date: 04/12/21 89-year-old pleasant female came in with complaints of from musculoskeletal left-sided sharp chest pain radiating to the back moderate severity. Patient is incidentally found to have second-degree heart block questionable whether it's type II second-degree AV block. Patient was evaluated by cardiology and patient is undergoing pacemaker placement today patient chest pain is reproducible. Patient is mildly elevated d-dimer of 1.4 because of which patient had CT angios the chest which did not show any pulmonary embolism. Patient lives by herself able to take care of herself 04/11/2021 Patient is evaluated today status post insertion of a dual-chamber pacemaker Dr. Lopez this morning. She currently denies any pain. We will put a PT OT consultation. Echocardiogram showed an EF of 55-60% with mild concentric left ventricular hypertrophy. Troponins are negative, TSH normal 1.52, will repeat labs in the morning. 04/12/2021 Patient is evaluated today resting in bed. She is post op day #1 insertion of a dual-chamber pacemaker Dr. Lopez. She is able to walk to the bathroom without difficulty. She denies any dizziness or lightheadedness. She denies any chest pain, chest pressure or shortness of breath. Patient had a repeat chest x-ray this morning which showed no problems with the lead placement for her dual-chamber pacemaker. We are still pending clearance from cardiology and the interrogation from [employer]. She is hypertensive this morning her blood pressure is 179/73, heart rate 58 and she is afebrile. 94% room air. Patient is alert and oriented 3. She does live by herself. She is a little confused about what it means to have a pacemaker, she needs ongoing education regarding this. Labs today show a stable hemoglobin of 11. Sodium levels 136. BUN/cr eatinine are normal limits and creatinine is 0.70. Mag was 1.7 we did replace per protocol. Blood sugars are controlled. Plan is for discharge today with her son. She is going to stay with him for a couple days as she does live by herself. Pending formal PT OT evaluation as well. ROS Constitutional: Denied any fatigue denied any fever. Cardio vascular: denied any chest pain, palpitations Gastrointestinal denied any nausea vomiting Pulmonary: Denied any shortness of breath cough Neurologic denied any new focal deficits All inpatient medications were reviewed and appropriate changes in these medications as dictated in the interval history and assessment and plan. PHYSICAL EXAMINATION: GENERAL: The patient is alert and oriented x3, not in any acute distress. Thin built HEENT: Pupils are round and equally reacting to light. EOMI. No scleral icterus. No conjunctival pallor. Normocephalic, atraumatic. No pharyngeal erythema. No thyromegaly. CARDIOVASCULAR: S1 and S2 present. No murmurs, rubs, or gallops. Reproducible chest pain PULMONARY: Chest is clear to auscultation, no wheezing or crackles. ABDOMEN: Soft, nontender, nondistended, normoactive bowel sounds. No palpable o rganomegaly. MUSCULOSKELETAL: No joint swelling or deformity. EXTREMITIES: No cyanosis, clubbing, or pedal edema. NEUROLOGICAL: Gross neurological examination did not reveal any focal deficits. SKIN: No rashes. 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 Objective - Vital Signs Vital signs: Vital Signs Temp 98.2 F 04/12/21 07:00 Pulse 58 L 04/12/21 07:00 Resp 18 04/12/21 07:00 BP 179/73 04/12/21 07:00 Pulse Ox 94 L 04/12/21 07:00 Intake & Output 04/11/21 04/12/21 04/12/21 18:59 06:59 18:59 Intake Total 886 500 Balance 886 500 Intake: IV 206 Oral 680 500 Other: Voiding Method Toilet # Voids 1 1 # Bowel Movements 1 - Labs CBC & Chem 7: 04/12/21 06:09 04/12/21 06:09 Labs: Abnormal Lab Results - Last 24 Hours (Table) 04/11/21 04/12/21 04/12/21 Range/Units 20:51 06:09 06:09 RBC 3.85 L (4.10-5.20) X 10*6/uL Hgb 11.0 L (12.0-15.0) g/dL Hct 33.9 L (37.2-46.3) % Sodium 136 L (137-145) mmol/L Glucose 118 H (74-99) mg/dL POC Glucose (mg/dL) 126 H (75-99) mg/dL Assessment and Plan Time with Patient: Greater than 30
[2021-04-12 14:13] VITALS: BP 161/69; PULSE 69
--- NOTE | 2021-04-12 16:23 | P.PN ---
Subjective Progress Note Date: 04/12/21 This pleasant 89-year-old female patient who presented to the hospital with chest discomfort and high-grade AV block noted on EKG. She has a history of hypertension and diabetes mellitus type 2. Echocardiogram with Doppler study showed normal LV systolic function with ejection fraction between 55-60%, mild MR and mild TR. TSH was normal. She subsequently underwent placement of dual- chamber permanent pacemaker yesterday by Dr. Lopez. EKG and rhythm strip show appropriate pacing and sensing. Device interrogation today showed normal device function and measurements. Overall she is feeling fairly well. Has minimal discomfort at the LIC site. Objective - Vital Signs Vital signs: Vital Signs Temp 98.2 F 04/12/21 14:12 Pulse 69 04/12/21 14:12 Resp 18 04/12/21 14:12 BP 161/69 04/12/21 14:12 Pulse Ox 95 04/12/21 14:12 Intake & Output 04/11/21 04/12/21 04/12/21 18:59 06:59 18:59 Intake Total 886 500 Balance 886 500 Intake: IV 206 Oral 680 500 Other: Voiding Method Toilet Toilet # Voids 1 1 4 # Bowel Movements 1 - Exam PHYSICAL EXAMINATION: HEENT: Head is atraumatic, normocephalic. Pupils equal, round. Neck is supple. There is no elevated jugular venous pressure. HEART EXAMINATION: Heart sounds regular, S1 and S2 normal. No murmur or gallop heard. CHEST EXAMINATION: Lungs are clear to auscultation and precussion. LIC site with dressing dry and intact. Left arm sling in place. ABDOMEN: Soft, nontender. Bowel sounds are heard. No organomegaly noted. EXTREMITIES: 2+ peripheral pulses with no evidence of peripheral edema and no calf tenderness noted. NEUROLOGIC patient is awake, alert and oriented x3. . - Labs CBC & Chem 7: 04/12/21 06:09 04/12/21 06:09 Labs: Abnormal Lab Results - Last 24 Hours (Table) 04/11/21 04/12/21 04/12/21 Range/Units 20:51 06:09 06:09 RBC 3.85 L (4.10-5.20) X 10*6/uL Hgb 11.0 L (12.0-15.0) g/dL Hct 33.9 L (37.2-46.3) % Sodium 136 L (137-145) mmol/L Glucose 118 H (74-99) mg/dL POC Glucose (mg/dL) 126 H (75-99) mg/dL Assessment and Plan Assessment: #1 high-grade AV block, status post permanent pacemaker implantation #2 chest pain, acute coronary event is ruled out #3 hypertension #4 diabetes mellitus Plan: From cardiology perspective device interrogation and chest x-ray were reviewed. Device appears to be functioning normally. Site with dressing dry and intact. I reviewed left arm restrictions with the patient. She will follow-up in the office in about a week for pacemaker interrogation and office visit. [employer] note has been reviewed, I agree with a documented findings and plan of care. Patient was seen and examined.
--- NOTE | 2021-04-19 11:19 | P.DS ---
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 Discharge disposition Patient can be discharged home. She is going to stay with her son for a couple days. Hospital course This is a pleasant 89 year old female who presented to the hospital with complaints of musculoskeletal left sided sharp chest pain radiating into the back with moderate severity. Patient was found to possibly have a second-degree AV Block possibility of type 2. Patient underwent a dual chamber pacemaker on 04/11/21. Past medical history is significant for diabetes mellitus type 2, hyperlipidemia, hypertension. Patient will follow up with cardiology and PCP in the office. Please see progress note dated 04/12/21 for additional information. Thank you for allowing us to participate in the care of this patient. Plan - Discharge Summary New Discharge Prescriptions: New Famotidine [Pepcid] 20 mg PO DAILY tab Acetaminophen Tab [Tylenol] 650 mg PO Q6HR PRN tab PRN Reason: Mild Pain Or Fever > 100.5 Continue metFORMIN HCL 250 mg PO DAILY Timolol 0.5% Ophth Soln [Timoptic 0.5% Ophth Soln] 1 drop BOTH EYES DAILY No Action amLODIPine [Norvasc] 2.5 mg PO DAILY Losartan Potassium 50 mg PO HS Discharge Medication List Losartan Potassium 50 mg PO HS 04/09/21 [History] Timolol 0.5% Ophth Soln [Timoptic 0.5% Ophth Soln] 1 drop BOTH EYES DAILY 04/09/21 [History] amLODIPine [Norvasc] 2.5 mg PO DAILY 04/09/21 [History] metFORMIN HCL 250 mg PO DAILY 04/09/21 [History] Acetaminophen Tab [Tylenol] 650 mg PO Q6HR PRN tab 04/12/21 [Rx] Famotidine [Pepcid] 20 mg PO DAILY tab 04/12/21 [Rx] Follow up Appointment(s)/Referral(s): Suha Lopez MD [STAFF PHYSICIAN] - 1 Week (Needs Device Clinic Check) Tevin Dixon DO [Primary Care Provider] - 1-2 days Ambulatory/Diagnostic Orders: Basic Metabolic Panel [LAB.AMB] Time Frame: 2 Days, Location: None Selected Magnesium [LAB.AMB] Time Frame: 2 Days, Location: None Selected Patient Instructions/Handouts: Bradycardia (ED), Bradycardia (GEN) Activity/Diet/Wound Care/Special Instructions: Will need device clinic check up 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 Discharge Disposition: HOME SELF-CARE
== END 2021-04-12 16:46 | disposition home or self-care (01) ==
LOC: EC 18:02 → 6NMEDSUR 20:59
PROVIDERS: ADMIT Internal Medicine; ATTEND Internal Medicine
DX: I44.2 Atrioventricular block, complete (principal); R07.89 Other chest pain; R07.2 Precordial pain; I11.9 Hypertensive heart disease without heart failure; E83.42 Hypomagnesemia; E78.5 Hyperlipidemia, unspecified; R00.1 Bradycardia, unspecified; I08.1 Rheumatic disorders of both mitral and tricuspid valves; M19.90 Unspecified osteoarthritis, unspecified site; R79.89 Other specified abnormal findings of blood chemistry; Z20.822 Contact with and (suspected) exposure to COVID-19; E11.9 Type 2 diabetes mellitus without complications; Z79.899 Other long term (current) drug therapy; Z79.84 Long term (current) use of oral hypoglycemic drugs; Z88.0 Allergy status to penicillin
CPT/HCPCS: 96372; 96374; 99285; 36415; 93005; 93306; 33208; 85379; 80053; 80048 ×3; 84443; 83735 ×3; 84484 ×2; 85025 ×2; 85610; 85730; 87635; 71046 ×2; 71275; G0378 ×4; C1769 ×3; C1892; C1898 ×2; C1785; J2250; J2001; J3010; J3475; Q9967 ×2; J1644 ×3